=== PATIENT | male | born 1960 | race Caucasian/White ===

== ENCOUNTER 2018-11-15 14:27 | Emergency (ER) | payer MEDICAID ==
[2018-11-15] MEDS ORDERED: Bacitracin Oint 1 GM U/D Packet TOP ONE (14:40)
[2018-11-15] MEDS ORDERED: Lidocaine 1% 30 ML SDV INJECT ONE (14:40)
--- NOTE | 2018-11-15 14:57 | EDM.PDOC ---
ED HPI GENERAL MEDICAL PROBLEM - General Chief Complaint: Laceration Stated Complaint: CUT FINGER Time Seen by Provider: 11/15/18 14:46 Source of Information: Reports: Patient History Limitations: Reports: No Limitations - History of Present Illness INITIAL COMMENTS - FREE TEXT/NARRATIVE: Patient cut his finger with a utility knife while cutting plastic tubing. His last tetanus shot was 4 years ago. His only medication is phenytoin, it's been 14 years since he had a seizure. No allergies Patient is left handed. Onset: Today Right Finger-Middle Pain Score (Numeric/FACES): 2 - Related Data Allergies Allergy/AdvReac Type Severity Reaction Status Date / Time No Known Allergies Allergy Verified 11/15/18 14:37 Home Meds: Home Meds Phenytoin Sodium Extended 400 mg PO DAILY 11/15/18 [History] Past Medical History Neurological History: Reports: Seizure Other Neuro History: has not had seizure in over 14 years Social & Family History - Tobacco Use Smoking Status *Q: Never Smoker - Caffeine Use Caffeine Use: Reports: Coffee - Recreational Drug Use Recreational Drug Use: No ED ROS GENERAL - Review of Systems Review Of Systems: ROS reveals no pertinent complaints other than HPI. ED EXAM, SKIN/RASH Exam: See Below Exam Limited By: No Limitations General Appearance: Alert, WD/WN, No Apparent Distress Nose: Normal Inspection, Normal Mucosa, No Blood Head: Atraumatic, Normocephalic Respiratory/Chest: No Respiratory Distress, Lungs Clear, Normal Breath Sounds, No Accessory Muscle Use, Chest Non-Tender Cardiovascular: Normal Peripheral Pulses, Regular Rate, Rhythm, No Edema, No Gallop, No JVD, No Murmur, No Rub Extremities: Normal Range of Motion (Right middle finger has cut across the finger pad.) Neurological: Alert, Oriented, CN II-XII Intact, Normal Cognition, Normal Reflexes, No Motor/Sensory Deficits Psychiatric: Normal Affect, Normal Mood ED SKIN PROCEDURES - Laceration/Wound Repair Right Distal Digit - 3rd (Middle) Lac/Wound length In cm: 2 Appearance: Subcutaneous Distal NVT: Neuro & Vascular Intact Anesthetic Type: Local Local Anesthesia - Lidocaine (Xylocaine): 1% Plain Local Anesthetic Volume: 3cc Skin Prep: Chlorhexidine (Hibiciens) Exploration/Debridement/Repair: Wound Explored, In a Bloodless Field, No Foreign Material Found Closed with: Sutures Suture Size: 4-0 # of Sutures: 10 Suture Type: Prolene, Interrupted Drain Placement: No Sterile Dressing Applied: Nurse Tetanus Status Addressed: Yes Complications: No Course - Vital Signs Last Recorded V/S: Last Vital Signs Temp 98.9 F 11/15/18 14:38 Pulse 87 11/15/18 14:38 Resp 18 11/15/18 14:38 BP 139/75 11/15/18 14:38 Pulse Ox 100 11/15/18 14:38 - Orders/Labs/Meds Meds: Medications Discontinued Medications Generic Name Dose Route Start Last Admin Trade Name Michael PRN Reason Stop Dose Admin Bacitracin 1 dose 11/15/18 14:40 Bacitracin Oint 1 Gm TOP 11/15/18 14:41 ONETIME ONE Lidocaine HCl 30 ml 11/15/18 14:40 Xylocaine-Mpf 1% INJECT 11/15/18 14:41 ONETIME ONE Departure - Departure Time of Disposition: 15:50 Disposition: Home, Self-Care 01 Condition: Good Clinical Impression: Broken skin - Discharge Information *PRESCRIPTION DRUG MONITORING PROGRAM REVIEWED*: Not Applicable *COPY OF PRESCRIPTION DRUG MONITORING REPORT IN PATIENT JOHNATHAN: Not Applicable Instructions: Laceration Care, Adult, [id number], Stitches, [place], or Adhesive Wound Closure, [id number] Additional Instructions: See provider in 10-14 days to remove stitches. Use finger bandages to keep cut covered. Contact provider or come back to the ER if there is excess bleeding, swelling, loss of sensation, fevers or pus from the incision. Care Plan Goals: See provider in 10-14 days to remove stitches. Use finger bandages to keep cut covered. Contact provider or come back to the ER if there is excess bleeding, swelling, loss of sensation, fevers or pus from the incision.
== END 2018-11-15 16:10 | disposition home or self-care (01) ==
LOC: DL.ED 14:27
DX: S61.212A Laceration without foreign body of right middle finger without damage to nail, initial encounter (principal); W26.0XXA Contact with knife, initial encounter; Z79.899 Other long term (current) drug therapy
CPT/HCPCS: 12001; 99283; J2001